=== PATIENT | female | born 1955 | race Two or more races ===

== ENCOUNTER 2020-11-19 13:12 | Observation (INO) | payer MEDICARE, OTHER, SELFPAY ==
[~2020-11-19] VITALS: Ht 152.4 cm; Wt 59.7 kg
[2020-11-19 15:02] LABS: BASOPHILS % (AUTO) 1 % (0-1); EOSINOPHILS % (AUTO) 1 % (1-7); LYMPHOCYTES % (AUTO) 34 % (22-44); MEAN CORPUSCULAR HGB CONC 33.2 g/dL (32.4-35.8); MEAN PLATELET VOLUME 7.8 fL (7.4-10.4); MONOCYTES % (AUTO) 7 % (2-9); NEUTROPHILS % (AUTO) 57 % (42-75); PLATELET COUNT 269 x10^3/uL (130-400); RED BLOOD COUNT 4.96 x10^6/uL (3.82-5.3); RED CELL DISTRIBUTION WIDTH 13.6 % (9.6-15.2)
[2020-11-19 15:16] LABS: ALANINE AMINOTRANSFERASE 48 U/L (12-78); ALBUMIN 4.1 g/dL (3.4-5.0); ANION GAP 9 mmol/L (5-15); CALCIUM 9.4 mg/dL (8.5-10.1); CHLORIDE 104 mmol/L (98-107); CREATININE 0.86 mg/dL (0.55-1.02)
[2020-11-19 15:20] LABS: ALKALINE PHOSPHATASE 79 U/L (45-117); BILIRUBIN,TOTAL 0.7 mg/dL (0.2-1.0); TROPONIN I < 0.015 ng/mL (0.000-0.045)
--- NOTE | 2020-11-19 16:52 | NUR ---
DIGITAL ASSISTANT: PT TO ROOM FROM LOBBY
--- NOTE | 2020-11-19 16:56 | NUR ---
ININTAL CONTACT: PT W/ C/O"THE LAST FEW DAYS I HAVE BEEN DIZZY AND HAVE PRESSURE IN MY CHEST" X 3 DAYS. PT STATES SHE HAS FALLEN FROM DIZZINESS. PT TO ROOM WITH STEADY GAIT. ATTACHED TO MONITORS. VSS. BRYANT.
[2020-11-19 17:59] LABS: MICROSCOPIC NOT IND
--- NOTE | 2020-11-19 18:28 | NUR ---
DR. GAN TO BEDSIDE TO DISCUSS RESULTS. VSS. BRYANT.
--- NOTE | 2020-11-19 18:51 | NUR ---
REPORT NOC CRYS MEHTA
[2020-11-19] MEDS ORDERED: morphine SULFATE 10 MG/ML, 1ML IVPush PRN (19:00)
[2020-11-19] MEDS ORDERED: ENOXAPARIN 40 MG/0.4 ML SQ SCH (19:00)
[2020-11-19] MEDS ORDERED: NITROGLYCERIN 0.4 MG BOTTLE (25 TABS) SL PRN (19:00)
[2020-11-19] MEDS ORDERED: ONDANSETRON 2MG/ML, 2ML IVPush PRN (19:00)
[2020-11-19] MEDS ORDERED: ACETAMINOPHEN 325 MG TABLET PO PRN (19:00)
[2020-11-19] MEDS ORDERED: NITROGLYCERIN 0.4 MG/SPRAY SL PRN (19:00)
--- NOTE | 2020-11-19 19:13 | NUR ---
Patient is resting comfortably in bed. Bed in lowest, rails engaged, call light on lap. Vital Signs within normal limits. WCTM. FAMILY AT BEDSIDE. ANNETTE.
[2020-11-19] MEDS ORDERED: NITR100C6 PO (19:17)
[2020-11-19] MEDS ORDERED: EMPA1TAB7 PO (19:17)
[2020-11-19] MEDS ORDERED: LINA5TAB PO (19:17)
[2020-11-19] MEDS ORDERED: ASPI-963 PO (19:17)
--- NOTE | 2020-11-19 19:29 | NUR ---
GAVE REPORT TO ISABEL SPANGLER
[2020-11-19 19:30] LABS: TROPONIN I < 0.015 ng/mL (0.000-0.045)
[2020-11-19 20:19] VITALS: BP 138/72
[2020-11-19 20:21] VITALS: BP 132/72
[2020-11-19 20:23] VITALS: BP 145/73
[2020-11-19] MEDS ORDERED: LOVA20TA2 PO (20:49)
[2020-11-19] MEDS ORDERED: MELATONIN 5 MG TABLET PO PRN (21:00)
[2020-11-19] MEDS ORDERED: NITROFURANTOIN (MACROBID) 100 MG CAPSULE PO SCH (22:00)
[2020-11-19] MEDS: INSULIN LISPRO 100 UNITS/ML, PEN SQ-INSULIN SCH (22:15)
[2020-11-19] MEDS ORDERED: FOSFOMYCIN 3 GM PACKET PO ONE (22:30)
[2020-11-20 00:48] VITALS: BP 106/57
[2020-11-20 01:11] LABS: TROPONIN I < 0.015 ng/mL (0.000-0.045)
[2020-11-20 01:34] VITALS: BP 143/71
[2020-11-20 05:33] LABS: BASOPHILS % (AUTO) 1 % (0-1); EOSINOPHILS % (AUTO) 2 % (1-7); LYMPHOCYTES % (AUTO) 51 % (22-44); MEAN CORPUSCULAR HEMOGLOBIN 27.9 pg (27.0-34.8); MEAN CORPUSCULAR HGB CONC 33.1 g/dL (32.4-35.8); MEAN PLATELET VOLUME 7.8 fL (7.4-10.4); MONOCYTES % (AUTO) 7 % (2-9); NEUTROPHILS % (AUTO) 40 % (42-75); PLATELET COUNT 218 x10^3/uL (130-400); RED BLOOD COUNT 4.55 x10^6/uL (3.82-5.3); RED CELL DISTRIBUTION WIDTH 13.5 % (9.6-15.2)
[2020-11-20 05:40] LABS: CHLORIDE 105 mmol/L (98-107)
[2020-11-20 05:47] LABS: ANION GAP 6 mmol/L (5-15); CALCIUM 8.8 mg/dL (8.5-10.1); CREATININE 0.66 mg/dL (0.55-1.02)
[2020-11-20] MEDS: INSULIN LISPRO 100 UNITS/ML, PEN SQ-INSULIN SCH ×2 (07:00→11:29)
[2020-11-20 07:49] VITALS: BP 126/78
[2020-11-20] MEDS ORDERED: LINAGLIPTIN 5 MG TAB PO SCH (09:00)
[2020-11-20] MEDS ORDERED: ASPIRIN 81 MG TABLET EC PO SCH (09:00)
[2020-11-20 15:00] VITALS: BP 130/74
== END 2020-11-20 16:15 | disposition left against medical advice (07) ==
LOC: ED 18:00 → INTOOBSV 18:42 → EDIP 18:42 → 5SO 20:18
PROVIDERS: ADMIT Internal Medicine; ATTEND Hospitalist
DX: R07.89 Other chest pain (principal); R42 Dizziness and giddiness; R55 Syncope and collapse; M16.12 Unilateral primary osteoarthritis, left hip; I10 Essential (primary) hypertension; E78.5 Hyperlipidemia, unspecified; E11.65 Type 2 diabetes mellitus with hyperglycemia; F32.9 Major depressive disorder, single episode, unspecified; Z79.82 Long term (current) use of aspirin; Z79.899 Other long term (current) drug therapy; Z66 Do not resuscitate
CPT/HCPCS: 36415; 71045; 80048; 80053; 81003; 82962; 83735; 84484; 85025; 93005; 93306; 93356; 96372; 99285; G0378; J1650; J1815